=== PATIENT | male | born 1990 | race Caucasian/White ===

== ENCOUNTER 2021-07-01 10:51 | Outpatient (CLI) | payer MEDICAID ==
--- NOTE | 2021-07-01 16:53 | XRAY Report ---
PROCEDURE: Chest 2 View X-Ray INDICATIONS: ATYPICAL CHEST PX TECHNIQUE: 2 view(s) of the chest. COMPARISON: None. FINDINGS: Surgical changes and devices: None. Lungs and pleura: Trace pulmonary radiopacities are present at the left lung base. The lungs are othe rwise clear. Mediastinum: Mediastinal contours are normal. Heart size is normal. Bones and chest wall: No suspicious bony abnormalities. Soft tissues appear unremarkable. IMPRESSION: Trace left basilar pulmonary radiopacities suspicious for atelectasis or mild infection. Short interval follow-up recommended to ensure resolution of this finding. Reviewed by: Estee Rodriguez MD on 07/01/2021 4:52 PM PDT Approved by: Estee Rodriguez MD on 07/01/2021 4:52 PM PDT Station ID: [id number]
== END 2021-07-01 23:59 | disposition home or self-care (01) ==
LOC: DI.N 10:51
PROVIDERS: ATTEND Family Medicine
DX: R07.89 Other chest pain (principal); K62.9 Disease of anus and rectum, unspecified; R91.8 Other nonspecific abnormal finding of lung field